=== PATIENT | female | born 1980 | race Caucasian/White ===

== ENCOUNTER 2020-07-09 18:08 | Emergency (ER) | payer BC, OTHER ==
[2020-07-09] MEDS ORDERED: SODIUM CHLORIDE 1,000 ML IV STA (18:19)
[2020-07-09] MEDS ORDERED: diazePAM CARPU-JECT 10 MG/2 ML DISP.SYRIN IVPUSH ONE (18:19)
[2020-07-09] MEDS ORDERED: diazePAM CARPU-JECT 10 MG/2 ML DISP.SYRIN ONE (18:29)
[2020-07-09] MEDS ORDERED: FOLIC ACID 1 MG TABLET (FP) PO ONE (18:36)
[2020-07-09] MEDS ORDERED: ONDANSETRON 4 MG/2 ML VIAL IVPB ONE (18:36)
[2020-07-09] MEDS ORDERED: THIAMINE HCL 100 MG TABLET (FP) PO ONE (18:36)
[2020-07-09] MEDS ORDERED: MULTIVITAMINS (DAILY MVI) TABLET (FP) PO ONE (18:37)
[2020-07-09 18:40] VITALS: TEMP 98.3; BMI 20.9
[2020-07-09 18:45] LABS: BASO % 1.5 % (0-2.0); EOS % 1.5 % (0-4.5); HEMATOCRIT 43.5 % (32.4-45.2); HEMOGLOBIN 14.9 GM/dl (10.7-15.3); LYMPH % 29.4 % (8-40); MCH 32.9 pg (25.7-33.7); MCHC 34.3 g/dl (32.0-36.0); MEAN PLT VOLUME 7.3 fl (7.5-11.1); MONO % 6.2 % (3.8-10.2); NEUT % 61.4 % (42.8-82.8); PLATELET COUNT 288 K/MM3 (134-434); RBC 4.53 M/mm3 (3.60-5.2); RDW 12.7 % (11.6-15.6); WHITE BLOOD COUNT 5.9 K/mm3 (4.0-10.8)
[2020-07-09] MEDS ORDERED: LACTATED RINGERS SOLUTION 1000 ML INFUS.BAG IV ONE (18:55)
[2020-07-09 19:00] LABS: ALBUMIN 4.8 g/dl (3.4-5.0); ALK PHOS 75 U/L (45-117); ANION GAP 14 MMOL/L (8-16); BILIRUBIN,TOTAL 0.9 mg/dl (0.2-1); CALCIUM 9.2 mg/dl (8.5-10); CHLORIDE 99 mmol/L (98-107); CO2 24 mmol/L (21-32); GLUCOSE,RANDOM 119 mg/dl (74-106); SGOT/AST 41 U/L (15-37); SGPT/ALT 39 U/L (13-61); SODIUM 137 mmol/L (136-145); TOT PROT 7.8 g/dl (6.4-8.2)
[2020-07-09 19:23] VITALS: BP 123/89; PULSE 88
== END 2020-07-09 19:59 | disposition home or self-care (01) ==
LOC: FER 18:08
PROC: 3E033NZ Introduction of Analgesics, Hypnotics, Sedatives into Peripheral Vein, Percutaneous Approach (ICD-10-PCS; principal; 2020-07-09)
PROC: 3E033GC Introduction of Other Therapeutic Substance into Peripheral Vein, Percutaneous Approach (ICD-10-PCS; 2020-07-09)
PROC: 3E0337Z Introduction of Electrolytic and Water Balance Substance into Peripheral Vein, Percutaneous Approach (ICD-10-PCS; 2020-07-09)
DX: F10.239 Alcohol dependence with withdrawal, unspecified (principal)
CPT/HCPCS: 36415; 71045-TC-FY; 80053; 80307; 81003; 84484; 84703; 85025; 87086; 93005; 99285-25; C9803; U0003; U0005